=== PATIENT | female | born 1995 | race Caucasian/White ===

== ENCOUNTER → 2017-01-29 | Outpatient (CLI) | payer BC ==
--- NOTE | 2017-01-29 10:13 | DIAGNOSTIC IMAGING REPORT ---
LEFT FOOT MIN 3 VIEWS ROUTINE HISTORY: 21 years-old Female LEFT FOOT PAIN acute left foot pain status post prolonged walking. The pain is most pronounced within the second and third distal metatarsals COMPARISON: None available TECHNIQUE: 3 views of the left foot FINDINGS: Type I accessory navicular is present. There is bony fusion involving the DIP joints of the third through fifth digits. There is mild to moderate dorsal forefoot soft tissue swelling without acute fracture or dislocation identified. No periosteal reaction or stress fracture is seen. IMPRESSION: Mild to moderate dorsal forefoot soft tissue swelling without acute fracture, dislocation, periosteal response or stress fracture identified. The above report was generated using voice recognition software. It may contain grammatical, syntax or spelling errors. Electronically signed by: Wiley Escalante M.D. 01/29/2017 10:12 AM Dictated Date/Time: 01/29/2017 10:09 AM
== END | disposition home or self-care (01) ==
LOC: C.RAD 09:52
PROVIDERS: ATTEND Physician Assistant Medical
DX: M79.672 Pain in left foot (principal)